=== PATIENT | male | born 1980 | race Two or more races ===

== ENCOUNTER 2017-01-31 01:47 | Emergency (ER) | payer MEDICAID ==
[~2017-01-31] VITALS: Ht 160 cm; Wt 50.0 kg
[2017-01-31 01:55] VITALS: BP 115/92
[2017-01-31] MEDS ORDERED: ALBU2TAB PO (02:02)
[2017-01-31] MEDS ORDERED: LISI-170 PO (02:02)
[2017-01-31] MEDS ORDERED: ATOR10TA9 PO (02:02)
[2017-01-31] MEDS ORDERED: METF500T4 PO (02:02)
[2017-01-31] MEDS ORDERED: GABA300C10 PO (02:02)
[2017-01-31] MEDS ORDERED: QUET25TA5 PO (02:04)
[2017-01-31 02:26] LABS: HEMATOCRIT 45.7 % (39.2-51.8); HEMOGLOBIN 15.7 g/dL (13.7-18.0); WHITE BLOOD COUNT 9.5 x10^3/uL (3.4-10)
[2017-01-31 02:33] LABS: ASPARTATE AMINO TRANSFERASE 23 U/L (15-37); BLOOD UREA NITROGEN 10 mg/dL (7-18)
[2017-01-31 02:52] LABS: ACETAMINOPHEN < 2 mcg/mL (10-30)
== END 2017-01-31 05:44 | disposition other institution (70) ==
LOC: ED 02:51
DX: R45.851 Suicidal ideations (principal); Z72.89 Other problems related to lifestyle; E11.9 Type 2 diabetes mellitus without complications
CPT/HCPCS: 36415; 80053; 80307; 80329; 84443; 85025; 99285; G0479; G0480